=== PATIENT | male | born 1935 | race Caucasian/White ===

== ENCOUNTER 2019-02-12 21:44 | Emergency (ER) | payer MEDICARE ==
[~2019-02-12] VITALS: Ht 180.3 cm; Wt 90.0 kg
[~2019-02-12 21:44] MED LIST: DONE5TAB34 PO; FOLI1TAB16 PO; LISI-603 PO; MIRT45TA83 PO; NIAC500T8 PO; OXCA300T15 PO
--- NOTE | 2019-02-12 22:24 | NUR ---
PT REFUSED TO SPEAK. PT STATED THAT HE FELT FINE. NO C/O PAIN AND NO S/S OF PAIN OR DISTRESS.
[2019-02-12] MEDS ORDERED: ONDANSETRON HCL/PF 4 MG/2 ML VIAL ONE (22:42)
[2019-02-12] MEDS: ONDANSETRON HCL/PF 4 MG/2 ML VIAL IVP ONE (22:53)
[2019-02-12 22:56] LABS: BASOPHILS % (AUTO) 0.6 % (0.0-2.0); EOSINOPHILS % (AUTO) 2.4 % (0.0-6.0); HEMATOCRIT 42 % (39-51); HEMOGLOBIN 13.7 g/dL (13.5-17.5); LYMPHOCYTES # (AUTO) 1.4 /CMM (0.8-4.8); LYMPHOCYTES % (AUTO) 22.5 % (20.0-44.0); MEAN CORPUSCULAR HGB CONC 33 g/dl (31.0-36.0); MEAN CORPUSCULAR VOLUME 99 fL (80-96); MONOCYTES # (AUTO) 0.9 /CMM (0.1-1.30); MONOCYTES % (AUTO) 14.9 % (2.0-12.0); NEUTROPHILS # (AUTO) 3.8 /CMM (1.8-8.9); NEUTROPHILS % (AUTO) 59.6 % (43.0-81.0); PLATELET COUNT (AUTO) 166 /CMM (150-450); RED BLOOD CELL COUNT(AUTO) 4.19 MIL/uL (4.5-6.0); WHITE BLOOD COUNT (AUTO) 6.3 K/uL (4.3-11.0)
[2019-02-12] MEDS ORDERED: IV NS 0.9% 500 ML BAG IV ONE (23:00)
[2019-02-12 23:06] LABS: CALCIUM, SERUM 7.8 mg/dL (8.5-10.1); CARBON DIOXIDE 26 mmol/L (21-32); CHLORIDE 106 mmol/L (98-107); CREATININE 1.5 mg/dL (0.6-1.3); GLUCOSE 123 mg/dL (74-106); POTASSIUM 3.6 mmol/L (3.5-5.1); SODIUM SERUM 140 mmol/L (136-145); UREA NITROGEN, BLOOD 26 mg/dL (7-18)
--- NOTE | 2019-02-12 23:14 | NUR ---
CALLED [facility] FOR TRANSPORT ETA OF 0000 WAS GIVEN, TRIP#[id number]
--- NOTE | 2019-02-13 00:26 | NUR ---
CALLED THE FACILITY AND SPOKE TO COURTNEY TO LET HER KNOW THAT THE PT WAS RETURNING.
--- NOTE | 2019-02-13 00:26 | NUR ---
Patient discharged to home in stable condition. Written and verbal after care instructions given. Patient verbalizes understanding of instruction. PT'S VSS.
[2019-02-13 00:29] VITALS: BP 161/72
== END 2019-02-13 00:30 | disposition home or self-care (01) ==
LOC: ER 21:47
DX: R11.2 Nausea with vomiting, unspecified (principal); E86.0 Dehydration; R56.9 Unspecified convulsions; G30.9 Alzheimer's disease, unspecified; F02.80 Dementia in other diseases classified elsewhere, unspecified severity, without behavioral disturbance, psychotic disturbance, mood disturbance, and anxiety; E78.00 Pure hypercholesterolemia, unspecified; I10 Essential (primary) hypertension; F32.9 Major depressive disorder, single episode, unspecified
CPT/HCPCS: 36415; 80048; 85025; 96374; 99283; J2405; J7040